=== PATIENT | female | born 2000 | race African-American/Black ===

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

== ENCOUNTER 2019-02-06 00:29 | Emergency (ER) | payer OTHER ==
[2019-02-06 00:49] VITALS: BP 123/88; PULSE 75; TEMP 98.1; BMI 26.1
[2019-02-06] MEDS ORDERED: ACETAMINOPHEN 325 MG TABLET (FP) PO ONE (01:23)
[2019-02-06] MEDS ORDERED: MAG HYDROX/AL HYDROX/SIMETH 30 ML UNIT-DOSE CUP PO ONE (01:24)
[2019-02-06] MEDS ORDERED: ACETAMINOPHEN 325 MG TABLET (FP) ONE (01:26)
[2019-02-06] MEDS ORDERED: MAG HYDROX/AL HYDROX/SIMETH 30 ML UNIT-DOSE CUP ONE (01:26)
== END 2019-02-06 02:33 | disposition home or self-care (01) ==
LOC: JER 00:29
DX: O26.891 Other specified pregnancy related conditions, first trimester (principal); M79.10 Myalgia, unspecified site; K59.00 Constipation, unspecified
CPT/HCPCS: 76775-TC; 99283-25

== ENCOUNTER 2019-06-24 23:58 | Emergency (ER) | payer OTHER ==
--- NOTE | 2019-06-25 00:01 | PDOC ---
History of Present Illness - General Stated Complaint: BLOOD IN STOOL Time Seen by Provider: 06/25/19 00:00 - History of Present Illness Initial Comments: 06/25/19 00:00 Ms. Sol is a , 18 yo female at 28 weeks gestation w/ no significant pmh who presents for evaluation of 1 day history of upper abdominal pain w/ single episode of blood noted to stool today as well. Patient previously evaluated w/ L &D. [employer]IST Radha aware of patient and patient cleared from [employer]IST standpoint who recommends 150 mg zantac PO. The patient denies chest pain, shortness of breath, headache and dizziness. Denies fever, chills, nausea, vomit, diarrhea and constipation. Denies dysuria, frequency, urgency and hematuria. Past History - Past Medical History Allergies/Adverse Reactions: Allergies Allergy/AdvReac Type Severity Reaction Status Date / Time Latex, Natural Rubber Allergy Severe Rash Verified 06/25/19 00:04 morphine Allergy Verified 06/25/19 00:04 Home Medications: Ambulatory Orders Vitamins (Sjr) - 1 tab PO DAILY 05/18/19 Anemia: No Asthma: Yes Cancer: No Cardiac Disorders: No CVA: No COPD: No CHF: No DVT: No Dementia: No Diabetes: No GI Disorders: No Disorders: No HTN: No Hypercholesterolemia: No Liver Disease: No Seizures: No Thyroid Disease: No - Surgical History Abdominal Surgery: No Appendectomy: No Cardiac Surgery: No Cholecystectomy: No Lung Surgery: No Neurologic Surgery: No Orthopedic Surgery: No - Immunization History Immunization Up to Date: Yes - Psycho Social/Smoking Cessation Hx Smoking History: Never smoked Have you smoked in the past 12 months: No Hx Alcohol Use: No Drug/Substance Use Hx: No Substance Use Type: None Hx Substance Use Treatment: No Review of Systems - Review of Systems Comments:: 06/25/19 00:01 GENERAL/CONSTITUTIONAL: No fever or chills. No weakness. HEAD, EYES, EARS, NOSE AND THROAT: No change in vision. No ear pain or discharge. No sore throat. CARDIOVASCULAR: No chest pain or shortness of breath RESPIRATORY: No cough, wheezing, or hemoptysis. GASTROINTESTINAL: +Upper abdominal pain as described w/ blood noted on stool. No nausea, vomiting, diarrhea or constipation. GENITOURINARY: No dysuria, frequency, or change in urination. MUSCULOSKELETAL: No joint or muscle swelling or pain. No neck or back pain. SKIN: No rash NEUROLOGIC: No headache, vertigo, loss of consciousness, or change in strength/ sensation. ENDOCRINE: No increased thirst. No abnormal weight change HEMATOLOGIC/LYMPHATIC: No anemia, easy bleeding, or history of blood clots. ALLERGIC/IMMUNOLOGIC: No hives or skin allergy. *Physical Exam - Physical Exam Comments: 06/25/19 00:01 GENERAL: Awake, alert, and fully oriented, in no acute distress HEAD: No signs of trauma, normocephalic, atraumatic EYES: PERRLA, EOMI, sclera anicteric, conjunctiva clear ENT: Auricles normal inspection, hearing grossly normal, nares patent, oropharynx clear without exudates. Moist mucosa NECK: Normal ROM, supple, no lymphadenopathy, JVD, or masses LUNGS: No distress, speaks full sentences, clear to auscultation bilaterally HEART: Regular rate and rhythm, normal S1 and S2, no murmurs, rubs or gallops, peripheral pulses normal and equal bilaterally. ABDOMEN: +Gravid abdomen c/w 28 weeks gestation. Soft, nontender, normoactive bowel sounds. No guarding, no rebound. No masses EXTREMITIES: Normal inspection, Normal range of motion, no edema. No clubbing or cyanosis. NEUROLOGICAL: Cranial nerves II through XII grossly intact. Normal speech, normal gait, no focal sensorimotor deficits SKIN: Warm, Dry, normal turgor, no rashes or lesions noted. RECTAL: No skin tags, fissures, or hemorrhoids noted. Medical Decision Making - Medical Decision Making 06/25/19 01:39 Patient is a 18 yo female w/ no pmh who presents for evaluation of upper abdominal pain and single rectal bleed concerning for GI bleed vs. hemorrhoids vs. gastritis vs. other abdominal process. Patient evaluated by L&D w/ normal abdominal US. Patient refused stool guaic exam however consented to visual inspection which was normal. Patient refused PO Zantac. Patient noted to have eloped prior to planned discharge. [employer]IST aware of case and will f/u in office. Discharge - Discharge Information Problems reviewed: Yes Clinical Impression/Diagnosis: Pain Disposition: ELOPED - Follow up/Referral Referrals: Shamika Garcia MD [Primary Care Provider] - - Patient Discharge Instructions - Post Discharge Activity
[2019-06-25 00:11] VITALS: BP 113/69; PULSE 87; TEMP 98.4; BMI 26.4
[2019-06-25] MEDS ORDERED: RANITIDINE HCL 150 MG TABLET (FP) PO ONE (00:28)
== END 2019-06-25 01:02 | disposition left against medical advice (07) ==
LOC: JER 23:58
DX: R10.10 Upper abdominal pain, unspecified (principal); Z91.040 Latex allergy status; Z91.09 Other allergy status, other than to drugs and biological substances; Z88.6 Allergy status to analgesic agent; J45.909 Unspecified asthma, uncomplicated
CPT/HCPCS: 99282-25

== ENCOUNTER 2019-09-04 03:45 | Inpatient (IN) | payer OTHER ==
[2019-09-04] MEDS: ELECTROLYTE-148 SOLN 1,000 ML IV SCH ×2 (05:00→08:30)
[2019-09-04 08:23] LABS: BASO % 0.3 % (0-2.0); EOS % 0.3 % (0-4.5); HEMATOCRIT 30.4 % (32.4-45.2); HEMOGLOBIN 10.5 GM/dL (10.7-15.3); LYMPH % 22.6 % (8-40); MCH 31.4 pg (25.7-33.7); MCHC 34.6 g/dl (32.0-36.0); MEAN CELL VOLUME 90.7 fl (80-96); MEAN PLT VOLUME 9.4 fl (7.5-11.1); MONO % 6.8 % (3.8-10.2); PLATELET COUNT 182 K/MM3 (134-434); RBC 3.35 M/mm3 (3.60-5.2); RDW 13.8 % (11.6-15.6); WHITE BLOOD COUNT 7.1 K/mm3 (4.0-10.0)
[2019-09-04] MEDS ORDERED: ELECTROLYTE-148 SOLN 500 ML IV ONE (08:24)
[2019-09-04 08:38] LABS: INR 0.86 (0.83-1.09); PROTHROMBIN TIME (PATIENT) 10.1 SEC (9.7-13.0)
--- NOTE | 2019-09-04 08:38 | HP ---
Past Medical History - Admission History of Present Illness: 19 yo @ 38 3/7 wks by second timester ultrasound, EDC 09/15/2019 complicated by: 1. Transfer of care / Late registrant at 15 wks Quad screen negative 2. Suspected asymmetrical growth (Lagging HC) and potential for IUGR noted on Level II (20 wks); normal intracranial anatomy HC growth resolved at 24 wks Most recent growth ultrasound at 35 wks (08/18/2019) - 2625g, 5 lb 13 oz (34%ile ) 3. Asthma - last inhaler use 2016 Patient presents with chief complaint of contractions which began on 09/03/2019 @ 2230, she reports movement, denies leakage of fluid or vaginal bleeding History Source: Patient Limitations to Obtaining History: No Limitations - Past Medical History Cardiovascular: No: HTN Pulmonary: Yes: Asthma (last inhaler use 2016) Gastrointestinal: No: GERD ...: 2 ...Para: 0 ...Term: 0 ...: 0 ...Spon : 0 ...Induced : 1 ...LMP: 12/12/18 ... Weeks Gestation by Dates: 38.1 ...EDC by Dates: 09/17/19 ...EDC by Sono: 09/15/19 Heme/Onc: No: Anemia - Past Surgical History Hx Myomectomy: No Hx Transabdominal Cerclage: No Additional Surgical History: Breast biopsy. Breast fibroadenoma removal - Smoking History Smoking history: Never smoked Have you smoked in the past 12 months: No - Alcohol/Substance Use Hx Alcohol Use: No - Social History History of Recent Travel: No Home Medications - Allergies Allergies/Adverse Reactions: Allergies Allergy/AdvReac Type Severity Reaction Status Date / Time Latex, Natural Rubber Allergy Severe Rash Verified 09/04/19 06:39 morphine Allergy Vomiting Verified 09/04/19 06:39 - Home Medications Home Medications: Ambulatory Orders Vitamins (Sjr) - 1 tab PO DAILY 05/18/19 Family Medical History Family History: Denies Review of Systems - Review of Systems Constitutional: reports: No Symptoms Cardiovascular: reports: No Symptoms Respiratory: reports: No Symptoms Gastrointestinal: reports: No Symptoms Genitourinary: reports: No Symptoms Musculoskeletal: reports: No Symptoms Neurological: reports: No Symptoms Hematology/Lymphatic: reports: No Symptoms Physical Exam - Maternity Vital Signs: Vital Signs Temperature 98.0 F 09/04/19 04:44 Pulse Rate 78 09/04/19 04:44 Respiratory Rate 20 09/04/19 04:44 Blood Pressure 121/82 09/04/19 04:44 O2 Sat by Pulse Oximetry (%) Constitutional: Yes: Well Nourished, No Distress, Calm Cardiovascular: Yes: Regular Rate and Rhythm Lungs: Clear to auscultation - Abdominal Exam/OB Number of Fetuses: Single Presentation: Vertex Category: I Accelerations: Non-Uniform Decelerations: None - Vaginal Exam/OB Vaginal Bleediing: No Dilatation (cm): 4 Effacement (%): 80 Amniotic Membrane Status: Intact Presentation: Vertex/Position Station: -3 - Physical Exam Psychiatric: Yes: Alert, Oriented - Labs Lab Results: CBC, BMP 09/04/19 08:11 PNL: B positive, antibody negative; RPR NR; HIV neg x 2, HBs Ag neg; HCV neg; Rubella Immune; Varicella Immune; GCT WNL; GBS negative Hemorrhage Risk Assessment - Risk Factors Medium Risk Factors: Yes: None High Risk Factors: Yes: None Risk Score: 1 Risk Level: Medium Risk Assessment/Plan 19 yo @ 38+ wks active labor 1. Admit to L&D 2. Consents reviewed and signed 3. GBS negative 4. Category I FHT 5. Will proceed with expectant management, anticipate vaginal delivery
[2019-09-04 08:41] LABS: ACTIVATED PTT 26.3 SECONDS (25.2-36.5)
[2019-09-04 08:47] LABS: CALCIUM 9.4 mg/dL (8.5-10.1); CREATININE 0.6 mg/dL (0.55-1.3); POTASSIUM 4.1 mmol/L (3.5-5.1)
[2019-09-04 08:48] VITALS: BMI 30.2
[2019-09-04] MEDS ORDERED: NALOXONE HCL 0.4 MG/ML VIAL IVPUSH PRN (08:58)
[2019-09-04] MEDS ORDERED: LIDO 2%/EPI 1:200000 PRESRVFRE (20 ML SDVIAL) ONE (09:00)
[2019-09-04] MEDS ORDERED: FENTANYL/BUPIVACAINE/NS/PF - PCEA - 50 ML DISP.SYRIN EP SCH (09:00)
[2019-09-04] MEDS ORDERED: FENTANYL/BUPIVACAINE/NS/PF - PCEA - 50 ML DISP.SYRIN EP ONE ×4 (09:02→18:40)
--- NOTE | 2019-09-04 12:38 | PN ---
Ante-Partal Exam - Subjective Subjective: Patient comfortable s/p epidural Vital Signs: Vital Signs Temperature 97.5 F L 09/04/19 12:00 Pulse Rate 78 09/04/19 12:00 Respiratory Rate 20 09/04/19 12:00 Blood Pressure 104/52 L 09/04/19 12:00 O2 Sat by Pulse Oximetry (%) 99 09/04/19 12:00 Bleeding: No Headache: No Visual changes: No Right upper quadrant pain: No - Contractions Contractions: Yes Regularity: Regular Intensity: Moderate Monitor Mode: External - Exam during Labor Heart Rate: 140 Variability: Moderate Category: I Monitor Accelerations: Present Monitor Decelerations: None Exam: Vaginal Dilatation (cm): 5 Effacement (%): 90 Amniotic Membrane Status: Ruptured (clear) Station: -2 - Intrapartum Hemorrhage Risk Medium Risk Factors: None High Risk Factors: None Risk Score: 0 Risk Level: Low Risk - Assessment/Plan Assessment/Plan: 19 yo active labor 1. AROM performed deceleration noted to 80-90s for approxmiately 6 minutes, resolution when placed on L lateral position, O2 via facemask Good recovery to 120s mod crystal + accel 2. GBS neg 3. Pain well controlled 4. will proceed with expectant management
[2019-09-04] MEDS ORDERED: BUPIVACAINE HCL/PF 0.5% (5 MG/ML) 30 ML VIAL IJ ONE ×2 (14:58→18:13)
--- NOTE | 2019-09-04 16:31 | PN ---
Ante-Partal Exam - Subjective Subjective: Patient reports increased pressure Vital Signs: Vital Signs Temperature 98.5 F 09/04/19 16:00 Pulse Rate 93 H 09/04/19 15:45 Respiratory Rate 20 09/04/19 15:45 Blood Pressure 115/76 09/04/19 15:45 O2 Sat by Pulse Oximetry (%) 99 09/04/19 15:45 Bleeding: No Headache: No Visual changes: No Right upper quadrant pain: No - Contractions Contractions: Yes - Exam during Labor Heart Rate: 140 Variability: Moderate Category: I Monitor Accelerations: Present Monitor Decelerations: None Exam: Vaginal Effacement (%): 7 Amniotic Membrane Status: Ruptured Presentation: Vertex Station: -2 - Intrapartum Hemorrhage Risk Medium Risk Factors: None High Risk Factors: None Risk Score: 0 Risk Level: Low Risk - Assessment/Plan Assessment/Plan: 19 yo active labor 1. Good cervical change 2. GBS neg 3. Pain well controlled with epidural 4. Category I FHT 5. Will proceed with expectant management
[2019-09-04] MEDS ORDERED: ACETAMINOPHEN 325 MG TABLET (FP) PO ONE (17:14)
[2019-09-04] MEDS ORDERED: ACETAMINOPHEN 325 MG TABLET (FP) ONE (17:15)
--- NOTE | 2019-09-04 18:13 | PN ---
Ante-Partal Exam - Subjective Subjective: Patient reports increased pressure Vital Signs: Vital Signs Temperature 99.5 F 09/04/19 18:00 Pulse Rate 96 H 09/04/19 17:15 Respiratory Rate 20 09/04/19 17:15 Blood Pressure 120/75 09/04/19 17:15 O2 Sat by Pulse Oximetry (%) 99 09/04/19 17:15 Bleeding: No Headache: No Visual changes: No Right upper quadrant pain: No - Contractions Contractions: Yes Regularity: Regular Monitor Mode: External - Exam during Labor Heart Rate: 140 Variability: Moderate Category: I Monitor Accelerations: Present Monitor Decelerations: None Exam: Vaginal Dilatation (cm): 9 Effacement (%): 90 Amniotic Membrane Status: Ruptured Presentation: Vertex Station: -1 - Intrapartum Hemorrhage Risk Medium Risk Factors: None High Risk Factors: None Risk Score: 0 Risk Level: Low Risk - Assessment/Plan Assessment/Plan: 19 yo P0 @ 38 wks active labor 1. Good cervical change, plan to continue to monitor 2. Will call anesthesia for pain control 3. GBS negative 4. Will proceed with expectant management
--- NOTE | 2019-09-04 19:15 | PN ---
Ante-Partal Exam - Subjective Subjective: Pain with contractions Vital Signs: Vital Signs Temperature 98.9 F 09/04/19 19:00 Pulse Rate 92 H 09/04/19 18:45 Respiratory Rate 20 09/04/19 18:45 Blood Pressure 124/78 09/04/19 18:45 O2 Sat by Pulse Oximetry (%) 100 09/04/19 18:45 Bleeding: No Headache: No Visual changes: No Right upper quadrant pain: No - Contractions Contractions: Yes Regularity: Regular Monitor Mode: External - Exam during Labor Heart Rate: 140 Variability: Moderate Category: I Monitor Accelerations: Present Monitor Decelerations: None Exam: Vaginal Dilatation (cm): 9 Effacement (%): 90 Amniotic Membrane Status: Ruptured Presentation: Vertex Station: -1 - Intrapartum Hemorrhage Risk Medium Risk Factors: None High Risk Factors: None Risk Score: 0 Risk Level: Low Risk - Assessment/Plan Assessment/Plan: 19 yo active labor 1. Unchanged exam will start pitocin 2. GBS neg 3. Category I FHT 4. Will proceed with expectant management
[2019-09-04] MEDS ORDERED: OXYTOCIN 30 UNITS in 0.9% NS 30 UNIT/500 ML INFUS.BAG IVPB ONE (19:19)
[2019-09-04] MEDS ORDERED: OXYTOCIN 30 UNITS in 0.9% NS 30 UNIT/500 ML INFUS.BAG IVPB SCH (19:30)
[2019-09-04] MEDS ORDERED: OXYTOCIN 20 UNITS in 0.9% NS 20 UNIT/1,000 ML INFUS.BAG IV ONE (20:57)
[2019-09-04] MEDS ORDERED: BENZOCAINE 20% 57 GM BOTTLE TP PRN (21:37)
[2019-09-04] MEDS ORDERED: BISACODYL 10 MG SUPP.RECT RC PRN (21:37)
[2019-09-04] MEDS ORDERED: METHYLERGONOVINE MALEATE 0.2 MG/1 ML AMP IM PRN (21:37)
[2019-09-04] MEDS ORDERED: WITCH HAZEL 50% (TUCKS) 40 PAD/JAR PAD TP PRN (21:37)
[2019-09-04] MEDS ORDERED: BENZOCAINE 28 GM HEMORRHOIDAL OINTMENT TP PRN (21:37)
--- NOTE | 2019-09-04 21:39 | PN ---
Delivery - Delivery Vaginal Delivery: No Problems Type of Anesthesia: Epidural Episiotomy/Laceration: None EBL (cc): 300 Delivery, Single - Stages of Labor Date 1st Stage Initiatied: 09/03/19 Time 1st Stage Initiated: 22:30 Date 2nd Stage Initiated: 09/04/19 Time 2nd Stage Initiated: 21:05 Date of Delivery: 09/04/19 Time of Delivery: 21:25 Date Placenta Delivered: 09/04/19 Time Placenta Delivered: 21:30 Placenta: Yes: Spontaneous - Condition of Infant Gender: Female Position: Left, OA Total Hours ROM (Hrs/Mins): 8hrs 59 minutes - 1 Minute Total Score: 9 5 Minutes Total Score: 9 - [place] Feeding Plan Initial Plan: Exclusive throughout hospitalization Remarks - Remarks Remarks: Patient progressed to fully dilated and at 2124 via delivered a viable female infant in ANA position, APGARs 9,9. Weight and length unknown at this time. Head delivered spontaneously followed by shoulders and body without difficulty. with spontaneous cry and placed on mother's abdomen. Nose and mouth was bulb suctioned. Cord was clamped and cut. Perineum and vagina examined, no lacerations noted Placenta was delivered spontaneously and intact. 20 units of pitocin in 1 L IVF was given. All counts correct x 2. Mother and infant stable in LDR. EBL 300cc.
[2019-09-04] MEDS ORDERED: OXYTOCIN 20 UNITS in 0.9% NS 20 UNIT/1,000 ML INFUS.BAG IV SCH (21:45)
[2019-09-05] MEDS: ACETAMINOPHEN 325 MG TABLET (FP) PO PRN ×3 (00:47→19:19)
[2019-09-05] MEDS: IBUPROFEN 600 MG TABLET (FP) PO PRN ×3 (00:48→19:17)
[2019-09-05] MEDS ORDERED: IBUPROFEN 600 MG TABLET (FP) PO ONE (00:50)
[2019-09-05] MEDS ORDERED: ACETAMINOPHEN 325 MG TABLET (FP) ONE (00:50)
[2019-09-05 06:38] LABS: BASO % 0.1 % (0-2.0); EOS % 0.3 % (0-4.5); HEMATOCRIT 27.1 % (32.4-45.2); HEMOGLOBIN 9.2 GM/dL (10.7-15.3); MCH 31.3 pg (25.7-33.7); MCHC 34.1 g/dl (32.0-36.0); MEAN CELL VOLUME 91.9 fl (80-96); MEAN PLT VOLUME 9.4 fl (7.5-11.1); MONO % 6.7 % (3.8-10.2); NEUT % 78.9 % (42.8-82.8); PLATELET COUNT 147 K/MM3 (134-434); RBC 2.95 M/mm3 (3.60-5.2); WHITE BLOOD COUNT 10.7 K/mm3 (4.0-10.0)
[2019-09-05] MEDS: FERROUS SO4 325 MG TABLET (FP) PO SCH ×2 (09:27→12:21)
[2019-09-05] MEDS: PRENATAL VITAMINS W/ FOLIC ACID TABLET (FP) PO SCH (09:27)
--- NOTE | 2019-09-05 12:22 | PN ---
Post Progress Note - Subjective Subjective: Patient without acute complaints. Reports tolerating oral intake without nausea or vomiting. Ambulating without dizziness. Denies fevers or chills. Pain well controlled with oral pain medication. without difficulty. Passing flatus. Type of Delivery: Vital Signs: Vital Signs Temperature 97.9 F 09/05/19 09:56 Pulse Rate 90 09/05/19 09:56 Respiratory Rate 18 09/05/19 09:56 Blood Pressure 113/66 09/05/19 09:56 O2 Sat by Pulse Oximetry (%) 100 09/04/19 21:00 Breast Exam: Yes: Soft Uterus: Yes: Fundus Firm Abdomen/GI: Yes: Abdomen soft, Passing flatus, Tolerating PO. No: Abdominal Distention, Tender Lochia: Yes: Rubra Lochia, amount: Small Extremities: Yes: Calves non-tender. No: Edema Perineum: Yes: Laceration Activity: Ambulating - Labs Labs: CBC WBC 10.7 K/mm3 (4.0-10.0) H 09/05/19 05:43 RBC 2.95 M/mm3 (3.60-5.2) L 09/05/19 05:43 Hgb 9.2 GM/dL (10.7-15.3) L 09/05/19 05:43 Hct 27.1 % (32.4-45.2) L 09/05/19 05:43 MCV 91.9 fl (80-96) 09/05/19 05:43 MCH 31.3 pg (25.7-33.7) 09/05/19 05:43 MCHC 34.1 g/dl (32.0-36.0) 09/05/19 05:43 RDW 14.0 % (11.6-15.6) 09/05/19 05:43 Plt Count 147 K/MM3 (134-434) 09/05/19 05:43 MPV 9.4 fl (7.5-11.1) 09/05/19 05:43 Absolute Neuts (auto) 8.5 K/mm3 (1.5-8.0) H 09/05/19 05:43 Neutrophils % 78.9 % (42.8-82.8) 09/05/19 05:43 Lymphocytes % 14.0 % (8-40) D 09/05/19 05:43 Monocytes % 6.7 % (3.8-10.2) 09/05/19 05:43 Eosinophils % 0.3 % (0-4.5) 09/05/19 05:43 Basophils % 0.1 % (0-2.0) 09/05/19 05:43 Nucleated RBC % 0 % (0-0) 09/05/19 05:43 Assessment/Plan 19 yo PPD # 1 s/p , afebrile, vital signs stable, doing well 1. Continue routine care. 2. AM CBC with mild anemia, will start iron 3. Rh positive status, no rhogam indicated. 4. Encourage ambulation 5. Continue oral pain medication 6. Anticipate discharge home day #2
[2019-09-05] MEDS ORDERED: SENNOSIDES/DOCUSATE COMBO (SENNA PLUS) TABLET (UD) PO PRN (22:00)
[2019-09-06 08:16] VITALS: BP 102/67; PULSE 92; TEMP 98
--- NOTE | 2019-09-06 08:27 | DS ---
Physical Exam-CAP SEWER Vital Signs: Vital Signs Temperature 98 F 09/06/19 07:50 Pulse Rate 92 H 09/06/19 07:50 Respiratory Rate 18 09/06/19 07:50 Blood Pressure 102/67 09/06/19 07:50 O2 Sat by Pulse Oximetry (%) 100 09/04/19 21:00 Constitutional: Yes: Well Nourished, No Distress, Calm Eyes: Yes: WNL, Conjunctiva Clear, EOM Intact HENT: Yes: WNL, Atraumatic, Normocephalic Neck: Yes: WNL, Supple, Trachea Midline Cardiovascular: Yes: WNL, Regular Rate and Rhythm Respiratory: Yes: WNL, Regular, CTA Bilaterally Gastrointestinal: Yes: WNL, Normal Bowel Sounds, Soft Pelvis: Yes: WNL External Genitalia: Yes: Normal Internal Exam Deferred: Yes ....Post : Yes: Uterus firm, Uterus non-tender Breast(s): Yes: WNL Musculoskeletal: Yes: WNL Extremities: Yes: WNL Edema: Yes Edema: LLE: Trace, RLE: Trace Integumentary: Yes: WNL Neurological: Yes: WNL, Alert, Oriented ...Motor Strength: WNL Psychiatric: Yes: WNL, Alert, Oriented Labs: CBC, BMP 09/05/19 05:43 09/04/19 08:11 Delivery - Delivery Vaginal Delivery: No Problems Type of Anesthesia: Epidural Episiotomy/Laceration: None EBL (cc): 300 Delivery, Single - Stages of Labor Date 1st Stage Initiatied: 09/03/19 Time 1st Stage Initiated: 22:30 Date 2nd Stage Initiated: 09/04/19 Time 2nd Stage Initiated: 21:05 Date of Delivery: 09/04/19 Time of Delivery: 21:25 Time Placenta Delivered: 21:30 Placenta: Yes: Spontaneous - Condition of Wrap Turner/Mica Washer Gluer Present: No Gender: Female Weight: 6 lb 8 oz Position: Left, OA Total Hours ROM (Hrs/Mins): 8hrs 59 minutes - 1 Minute Total Score: 9 5 Minutes Total Score: 9 - Feeding Plan Initial Plan: Exclusive throughout hospitalization Discharge Summary Problems reviewed: Yes Reason For Visit: LABOR Procedures: Principal: Normal vaginal delivery Hospital Course: Unremarkable Condition: Good - Instructions Diet, Activity, Other Instructions: Physical activity Resume your normal everyday activity as tolerated no heavy lifting or exercise until seen by your surgeon. You may walk unlimited robbie of and climb stairs. You may resume driving the car when you feel safe and comfortable behind the wheel. No sexual activity as instructed. Wound care If you have a bandage, leave it on, and keep dry for 48-72 hours. After that time discard the outer bandage. If they are tapes on the skin under the out of bandage leave them in place. They will peel off in the next 7 to 10 days. Do Not Peel them off. You may shower the day after surgery. If there are tapes present on the skin, you may shower over them. Diet There are no dietary restrictions. Eat healthy, high-fiber foods. Drink 6 to 8 glasses of liquid each day. This will assist in keeping your bowels are regular. Pain management You may take Tylenol or acetaminophen or Ibuprofen (for example, Motrin, Advil etc.) from my pain prescription medication is ordered should be taken as prescribed for moderate to severe pain. Call MD for any of the following: Severe pain not relieved by medication Fever of 101 or higher Excessive bleeding or drainage on dressing Inability to urinate Referrals: Nanci Mills [Primary Care Provider] - Disposition: HOME - Home Medications Comprehensive Discharge Medication List: Ambulatory Orders Vitamins (Sjr) - 1 tab PO DAILY 05/18/19
[2019-09-06] MEDS: PRENATAL VITAMINS W/ FOLIC ACID TABLET (FP) PO SCH (09:26)
[2019-09-06] MEDS ORDERED: FERROUS SO4 325 MG TABLET (FP) PO SCH (10:00)
[2019-09-06] MEDS: IBUPROFEN 600 MG TABLET (FP) PO PRN (11:59)
[2019-09-06] MEDS: ACETAMINOPHEN 325 MG TABLET (FP) PO PRN (11:59)
== END 2019-09-06 14:40 | disposition home or self-care (01) | DRG 560 ==
LOC: JDEL 03:45 → JLDR 07:40 → J3W 09-05 01:37
PROVIDERS: ADMIT Obstetrics & Gynecology; ATTEND Obstetrics & Gynecology
PROC: 10E0XZZ Delivery of Products of Conception, External Approach (ICD-10-PCS; principal; 2019-09-04)
DX: O80 Encounter for full-term uncomplicated delivery (principal); Z3A.38 38 weeks gestation of pregnancy; Z37.0 Single live birth
CPT/HCPCS: 36415; 59409; 80048; 85025; 85610; 85730; 86593; 86850; 86900; 86901

== ENCOUNTER 2021-05-17 05:16 | Day surgery (SDC) | payer OTHER ==
[2021-05-16 18:14] VITALS: BMI 31.2
[2021-05-17 11:00] LABS: BASO % 0.4 % (0-2.0); EOS % 0.8 % (0-4.5); HEMATOCRIT 26.5 % (32.4-45.2); HEMOGLOBIN 9.2 GM/dL (10.7-15.3); MCH 30.5 pg (25.7-33.7); MCHC 34.6 g/dl (32.0-36.0); MEAN CELL VOLUME 88.2 fl (80-96); MONO % 7.2 % (3.8-10.2); NEUT % 65.6 % (42.8-82.8); PLATELET COUNT 299 10^3/uL (134-434); RBC 3.01 M/mm3 (3.60-5.2); RDW 13.9 % (11.6-15.6)
[2021-05-17] MEDS ORDERED: PROPOFOL 20 ML ONE ×2 (13:09→13:50)
[2021-05-17] MEDS ORDERED: MIDAZOLAM HCL 2 MG/2 ML SINGLE DOSE VIAL ONE (13:09)
[2021-05-17] MEDS ORDERED: IBUPROFEN 400 MG TABLET (FP) PO PRN (13:14)
[2021-05-17] MEDS ORDERED: ACETAMINOPHEN 325 MG TABLET (FP) PO PRN (13:14)
[2021-05-17] MEDS ORDERED: ONDANSETRON 4 MG/2 ML VIAL IVPUSH PRN (13:15)
[2021-05-17] MEDS ORDERED: oxyCODONE HCL 5 MG TABLET PO PRN (14:04)
[2021-05-17] MEDS ORDERED: OXYTOCIN 10 UNITS/ML VIAL ONE (14:12)
[2021-05-17] MEDS ORDERED: METHYLERGONOVINE MALEATE 0.2 MG/1 ML AMP NR ONE (14:13)
[2021-05-17] MEDS ORDERED: METHYLERGONOVINE MALEATE 0.2 MG/1 ML AMP IM ONE (14:13)
[2021-05-17] MEDS ORDERED: LACTATED RINGERS SOLUTION 1,000 ML IV SCH (14:15)
[2021-05-17] MEDS ORDERED: ONDANSETRON 4 MG/2 ML VIAL ONE (14:29)
[2021-05-17] MEDS ORDERED: ONDANSETRON 4 MG/2 ML VIAL IVPUSH ONE (14:30)
[2021-05-17 17:03] VITALS: BP 106/61; PULSE 89; TEMP 97.6
== END 2021-05-17 16:45 | disposition home or self-care (01) ==
LOC: JASU-SURG 05:16
PROVIDERS: ATTEND Obstetrics & Gynecology
PROC: 10D17ZZ Extraction of Products of Conception, Retained, Via Natural or Artificial Opening (ICD-10-PCS; principal; 2021-05-17 13:30)
DX: O02.1 Missed abortion (principal)
CPT/HCPCS: 36415; 85025; 86850; 86900; 86901; 86922; 88305-TC; 94760; C9803; U0003; U0005